=== PATIENT | male | born 1960 | race Caucasian/White ===

== ENCOUNTER 2018-05-25 06:52 | Day surgery (SDC) | payer BC ==
[~2018-05-25] VITALS: Ht 185.4 cm; Wt 79.8 kg
[~2018-05-25 06:52] MED LIST: NKM
[2018-05-25] MEDS ORDERED: Midazolam 2mg/2ml Inj ONE ×2 (06:58→08:00)
[2018-05-25] MEDS ORDERED: LR 1000ml 1,000 ML IVLG SCH (07:00)
[2018-05-25 07:35] VITALS: BP 135/72
--- NOTE | 2018-05-25 07:44 | Anethesia Preoperative Eval ---
Anesthesia Pre-op PMH/ROS General Date of Evaluation: May 25, 2018 Time of Evaluation: 08:00 Anesthesiologist: Gracie ASA Score: ASA 1 Mallampati Score Class I : Soft palate, uvula, fauces, pillars visible Class II: Soft palate, uvula, fauces visible Class III: Soft palate, base of uvula visible Class IV: Only hard plate visible Mallampati Classification: Class I Surgeon: Marcos Diagnosis: Screening Surgical Procedure: Colonoscopy Anesthesia History: none Social History: smoking - quit 3 months ago, alcohol use - alcohol abuse in past, quit 8 years ago Family History: no anesthesia problems Allergies: Coded Allergies: No Known Allergies (Unverified , 05/24/18) Medications: see eMAR Patient NPO?: Yes NPO Date: May 24, 2018 NPO Time: 23:00 Past Medical History Cardiovascular: Denies: HTN, CAD, [place], valve dz, arrhythmia, other Pulmonary: Denies: asthma, COPD, MIRI, other Gastrointestinal/Genitourinary: Reports: GERD - diet controlled Neurologic/Psychiatric: Denies: dementia, CVA, depression/anxiety, TIA, other Endocrine: Denies: DM, hypothyroidism, steroids, other HEENT: Denies: cataract (L), cataract (R), glaucoma, [place] (L), [place] (R), other Hematology/Immune: Denies: anemia, DVT, bleeding disorder, other Musculoskeletal/Integumentary: Reports: OA, other - right toe fx PSxH Narrative: teeth removal sx Anesthesia Pre-op Phys. Exam Physician Exam Last Vital Signs Date Time Temp Pulse Resp B/P (MAP) Pulse Ox O2 Delivery O2 Flow Rate FiO2 05/25/18 07:35 97.7 59 18 135/72 95 Room Air Constitutional: NAD Neurologic: CN 2-12 intact Cardiovascular: RRR Respiratory: CTA - diminished at bases Gastrointestinal: S/NT/ND Airway Exam Mallampati Score: Class I MO: full ROM: full Teeth: missing Dentures: upper - partials Anesthesia Pre-op A/P Labs chart reviewed Risk Assessment & Plan Assessment: A&Ox4 Plan: MAC Status Change Before Surgery: No Pre-Antibiotics Given Within 1 Hr of Incision: No Chelsey Bowman CRNA May 25, 2018 07:44
--- NOTE | 2018-05-25 07:45 | Immediate Post-Op Evaluation ---
Immediate Post-Op Evalulation Immediate Post-Op Evalulation Procedure: Colonoscopy Date of Evaluation: May 25, 2018 Time of Evaluation: 08:55 IV Fluids: LR 400ml Blood Products: 0 Estimated Blood Loss: 0 Urinary Output: 0 Blood Pressure Systolic: 124 Blood Pressure Diastolic: 77 Pulse Rate: 60 Respiratory Rate: 18 O2 Sat by Pulse Oximetry: 100 Temperature (Fahrenheit): 97 Pain Score (1-10): 0 Nausea: No Vomiting: No Complications none Patient Status: awake, reacts, patent Hydration Status: adequate Given Within 1 Hr of Incision: No - none per surgeon Chelsey Bowman CRNA May 25, 2018 07:45
[2018-05-25] MEDS ORDERED: Lidocaine 1% MPF 10mg/ml 5ml ONE (08:00)
[2018-05-25] MEDS ORDERED: LR 1000ml ONE (08:00)
[2018-05-25] MEDS ORDERED: Propofol 200mg/20ml IV ONE (08:00)
--- NOTE | 2018-05-25 08:14 | Short Stay Surgery H&P ---
History of Present Illness History of Present Illness Chief Complaint see attached H&P HPI Kenny Nav Eller is a 57 year old male who was admitted on for Screening Patient History Allergies: Coded Allergies: No Known Allergies (Unverified , 05/24/18) Medication History Scheduled No Known Medications* (NKM - No Known Medications*), 0 ., (Reported) Physical Exam Vital Signs Last Vital Signs Date Time Temp Pulse Resp B/P (MAP) Pulse Ox O2 Delivery O2 Flow Rate FiO2 05/25/18 07:41 Room Air 05/25/18 07:35 97.7 59 18 135/72 95 Plan Attestation Are the patient's medical conditions optimized for surgery? Edwin Rodríguez MD May 25, 2018 08:14
--- NOTE | 2018-05-25 08:14 | Pre-Procedure Note/Attestation ---
Pre-Procedure Note/Attestation Complete Prior to Procedure Planned Procedure: not applicable Procedure Narrative: screening colon Indications for Procedure Pre-Operative Diagnosis: screening Attestation I attest that I discussed the nature of the procedure; its benefits; risks and complications; and alternatives (and the risks and benefits of such alternatives ), prior to the procedure, with the patient (or the patient's legal sales representative womens health). I attest that, if there was a reasonable possibility of needing a blood transfusion, the patient (or the patient's legal sales representative womens health) was given the [facility] standardized written summary, pursuant to the [place]ie [place] Blood Safety Act ([place] Health and Safety Code # 1645, as amended). I attest that I re-evaluated the patient just prior to the surgery and that there has been no change in the patient's H&P, except as documented below: Edwin Rodríguez MD May 25, 2018 08:14
[2018-05-25 08:55] VITALS: BP 124/77
[2018-05-25 08:59] VITALS: BP 114/74
[2018-05-25 09:15] VITALS: BP 109/58
[2018-05-25 09:30] VITALS: BP 131/78
--- NOTE | 2018-05-25 09:36 | 48 Hour Post Anesthesia Eval ---
Post Anesthesia Evaluation Procedure: Colonoscopy Date of Evaluation: May 25, 2018 Time of Evaluation: 09:34 Blood Pressure Systolic: 109 0: 55 Pulse Rate: 58 Respiratory Rate: 14 Temperature (Fahrenheit): 97.7 O2 Sat by Pulse Oximetry: 99 Airway: patent Nausea: No Vomiting: No Pain Intensity: 0 Hydration Status: adequate Cardiopulmonary Status: WNL Mental Status/LOC: patient returned to baseline Post-Anesthesia Complications: none Follow-up care needed: patient intructions given Chelsey Bowman CRNA May 25, 2018 09:36
[2018-05-25 09:40] VITALS: BP 134/78
--- NOTE | 2018-05-25 09:59 | Endoscopy Procedure Note ---
Endoscopy Procedure Note General Indication for Procedure: screen Procedures Performed: colonoscopy Operative Findings/Diagnosis: dim polyp x 2 sigmoid Specimen: yes Pt Tolerated Procedure Well: Yes Estimated Blood Loss: none Anesthesia Anesthesiologist: see report Anesthesia: MAC Medications Medication Given: see anesthesia record Inserted Devices Implant(s) used?: No GI Core Measures 50 yrs or older w/o bx or poly: Yes 10yrs. F/U not recommended: No If not recommended, why?: Above average risk 10 yrs. F/U needed: No 18 years or older w/prev. colo: No <3yrs. since last colonoscopy: No Med reason:<3 yrs.: System Reason:<3 yrs.: Last colonoscopy >= to 3yrs: No Edwin Rodríguez MD May 25, 2018 09:59
--- NOTE | 2018-05-25 10:01 | Brief Operative Note ---
Immediate Post Operative Note Operative Note Chief Complaint: screen Pre-op Diagnosis: screening Procedure: colon bx Post-op Diagnosis: dim sig polyp x 2 - bx off Surgeon: esther Anesthesiologist: see report Anesthesia: MAC Specimen: yes Complications: none Condition: stable Fluids: given Estimated Blood Loss: none Implant(s) used?: No Edwin Rodríguez MD May 25, 2018 10:01
--- NOTE | 2018-05-26 03:00 | Procedure Note ---
DATE OF PROCEDURE: 05/25/2018 GASTROENTEROLOGY PROCEDURE REPORT PROCEDURE: Colonoscopy with biopsy. SURGEON: Edwin Rodríguez M.D. ANESTHESIA: Please see the separate anesthesiologist notes for details. PRE-ENDOSCOPIC DIAGNOSIS: Screening colonoscopy. POST-ENDOSCOPIC DIAGNOSIS: Two diminutive polyps seen in the sigmoid, which were removed with biopsy forceps. PROCEDURE: The procedure, its risks, indications, alternatives, and possible complications including, but not limited to bleeding, infection, perforation, , and anesthesia complications were explained to the patient and informed consent was obtained. The patient was then sedated in the left lateral decubitus position. A rectal exam was done, which was unremarkable. The colonoscope was then introduced into the rectum and advanced to the terminal ileum. The terminal ileum was normal for about 5 cm. The colonoscope was then gradually withdrawn and the mucosa examined carefully. Examination of the colonic mucosa revealed the colonic mucosa was completely normal except two diminutive polyps, which were seen in the sigmoid colon and which were removed with biopsy forceps and placed in the same bottle. Retroflexed view of the rectum was unremarkable. The colonoscope was removed and the patient was sent to recovery in good condition. COMPLICATIONS: None. RECOMMENDATIONS: 1. Follow up biopsy results. 2. Follow up with primary physician for routine care. Thank you for asking me to participate in the care of this patient. Edwin Rodríguez M.D. DR: CAMILA JOB#: [id number] CC: Edwin Rodríguez M.D.; Fax#: [phone] Haja Schwartz M.D.
== END 2018-05-25 09:45 | disposition home or self-care (01) ==
LOC: GAS 06:52
DX: Z12.11 Encounter for screening for malignant neoplasm of colon (principal); D12.5 Benign neoplasm of sigmoid colon; Z87.891 Personal history of nicotine dependence; K21.9 Gastro-esophageal reflux disease without esophagitis; M19.90 Unspecified osteoarthritis, unspecified site
CPT/HCPCS: 94003; 94150; J2250